=== PATIENT | female | born 1950 | race Caucasian/White ===

== ENCOUNTER 2017-10-01 14:00 | Outpatient (RCR) | payer OTHER | END 2017-10-11 | disposition home or self-care (01) | LOC: PTY 14:00 | DX: M25.561 Pain in right knee (principal) ==

== ENCOUNTER 2017-10-17 13:15 | Outpatient (RCR) | payer OTHER | END 2017-11-10 | disposition home or self-care (01) | LOC: PTY 13:15 | DX: M25.561 Pain in right knee (principal) ==

== ENCOUNTER 2017-11-18 14:37 | Outpatient (RCR) | payer OTHER | END 2017-12-11 | disposition home or self-care (01) | LOC: PTY 14:37 | DX: M25.561 Pain in right knee (principal) ==